=== PATIENT | male | born 1945 | race Caucasian/White ===

== ENCOUNTER → 2016-08-25 | Outpatient (CLI) | payer MEDICARE, OTHER ==
[~2016-08-25] MED LIST: ACIPHEX20 MG PO; AMBIEN CR PO; AMBIEN PO; AMIODARONE PO; ASPIRIN PO; ASPIRIN81 M1 PO; ASPIRIN81 MG PO; ASPIRINEC PO; CERTAGEN PO; COUMADIN PO; COUMADIN4 MG PO; COUMADIN6 MG PO; DIFLUCAN PO; DOXYCYCLINE HY100 M3 PO; FLAGYL PO; FLOMAX0.4 M1 PO; FOLIC ACID PO; FOLIC ACID1 MG PO; HYDROCODON-ACE1 EAC1 PO; HYDROCODON-ACE1 EAC9 PO; IMDUR PO; LIPITOR40 MG DOB; LIPITOR40 MG PO; LOMOTIL TABLET1 TAB PO; LORTAB 7.5-5001 TAB PO; MECLIZINE HCL12.5 MG PO; MULTIVITAMIN1 UDCAP PO; NEXIUM PO; NITROGYLCERIN SUBLINGUAL; PACERONE PO; PACERONE100 MG PO; TOPROL XL PO; TRICOR PO; VALIUM10 MG PO; VYTORIN PO; XYZAL; XYZAL5 MG PO; ZYRTEC PO; ZYRTEC10 M2 PO
--- NOTE | ~2016-08-25 | US10 ---
[id number] [facility] [address] [place], [place] [address] [id number] O MR#: [id number] Acc #: [id number] NAME: XAVI PUTNAM : 1945 SEX: M STUDY DATE/TIME: 08/25/2016 9:40 UNIT: [facility]US ROOM: STUDY DESCRIPTION: US Aorta Complete Attending Physician: Benjamin Sifuentes M.D. Referring Physician: Benjamin Sifuentes M.D. Ordering Physician: Benjamin Sifuentes M.D. Primary Care Physician: Benjamin Sifuentes M.D. MEDICAL IMAGING REPORT This report is preliminary unless electronic signature is present EXAM Abdominal aorta duplex. HISTORY Abdominal aortic aneurysm. FINDINGS Duplex imaging of the abdominal aorta was performed. The abdominal aorta is patent and measures 1.69 cm in the midabdominal aorta and 1.2 cm distally. No evidence of aneurysm is seen. Right iliac artery is 1.2 and left common iliac artery is 1 cm in diameter. IMPRESSION Normal abdominal aorta duplex with no evidence of aneurysm. Proximal iliac arteries are nonaneurysmal. Dictated by... Samuel Parsons M.D. THIS IS AN ELECTRONICALLY VERIFIED REPORT Samuel Parsons M.D. at 09/02/2016 7:15 AM Ciro TD: 08/25/2016 17:16 JOB #: [id number] MEDICAL IMAGING REPORT Page 1 of 1 COPY
== END | disposition home or self-care (01) ==
LOC: CGUS 08-21 10:30
DX: Z00.00 Encounter for general adult medical examination without abnormal findings (principal)
CPT/HCPCS: 76770